=== PATIENT | male | born 1960 | race Caucasian/White ===

== ENCOUNTER 2023-02-12 17:44 | Outpatient (REF) | payer OTHER, SELFPAY | END 2023-02-12 17:45 | disposition home or self-care (01) | LOC: LAB 17:44 | PROVIDERS: PCP Internal Medicine; Visit Provider Surgery | DX: L72.3 Sebaceous cyst (principal) | CPT/HCPCS: 87070 ==

== ENCOUNTER 2023-03-03 10:34 | Day surgery (SDC) | payer OTHER, SELFPAY ==
--- NOTE | 2023-03-03 | OP_ITS ---
OPERATION DATE: ??03/03/2023 PREOPERATIVE DIAGNOSIS:? Previously infected epidermal cyst mid back. POSTOPERATIVE DIAGNOSIS:? Previously infected epidermal cyst mid back. PROCEDURE:? Excisional biopsy epidermal cyst mid back. SURGEON:? Rigoberto Mcdaniel M.D. ANESTHESIA:? Local with 1% lidocaine with epinephrine. ESTIMATED BLOOD LOSS:? Less than 5 mL. TOTAL LENGTH OF INCISION:? 2 cm. INDICATIONS AND CONSENT:? Patient is a 63-year-old male with a long history of epidermal cyst on the back that has been intermittently infected, including a recent episode.? He now presents for excisional biopsy for definitive diagnosis and treatment.? Indications, risks, benefits, alternatives of proceeding with excisional biopsy under local anesthesia were explained extensively to the patient, including risks of bleeding, infection, scarring, pain, recurrence, need for further surgery.? All of his questions were answered.? Informed consent was obtained. PROCEDURE:? Patient brought to the procedure room, placed in the left lateral decubitus position.? The area was prepped and draped in the usual sterile fashion.? It was anesthetized with 1% lidocaine with epinephrine.? It was excised elliptical fashion down to subcutaneous fat.? There was extensive scarring around it.? Hemostasis was achieved with needle tip electrocautery.? The specimen was sent off to Pathology.? The wound was irrigated.? The wound was then closed with 3-0 nylon mattress suture, as well as 4-0 nylon simple sutures.? An Adaptic with a small amount of antibiotic ointment and pressure dressing was then applied.? Patient tolerated procedure well, was sent back to the recovery area and discharged home in good condition. CC:? Dr. Hans CHAND
[2023-03-03 11:50] VITALS: BP 159/78; PULSE 72; RESP 16; O2SAT 97
[2023-03-03] MEDS: LIDOCAINE HCL 1%-EPINEPHRINE 1:100,000 20 ML MDV INJ (11:50)
[2023-03-03] MEDS: BACITRACIN OINTMENT 28.4 GM TUBE 1 APPLIC TOPICAL (12:08)
[2023-03-03 12:10] VITALS: BP 153/78; PULSE 63; RESP 98; O2SAT 98
== END 2023-03-03 12:22 | disposition home or self-care (01) ==
PROVIDERS: PCP Internal Medicine; Visit Provider Surgery
PROC: (CPT 11402; principal; 2023-03-03 11:40)
DX: L72.0 Epidermal cyst (principal); E11.9 Type 2 diabetes mellitus without complications; R97.20 Elevated prostate specific antigen [PSA]; I10 Essential (primary) hypertension; M10.9 Gout, unspecified; Z79.82 Long term (current) use of aspirin; Z79.84 Long term (current) use of oral hypoglycemic drugs; M54.89 Other dorsalgia; L08.89 Other specified local infections of the skin and subcutaneous tissue
CPT/HCPCS: 11402; 12031; 88304

== ENCOUNTER 2023-08-19 09:20 | Outpatient (OUT) | payer OTHER, SELFPAY ==
[2023-08-19 10:38] LABS: Estimated Average Glucose 203 mg/dL; Glycohemoglobin A1C 8.7 % (4.5-6.2)
[2023-08-19 10:45] LABS: Alanine Aminotransferase 50 U/L (16-63); Albumin Globulin Ratio 1.2; Albumin Level 3.7 g/dL (3.4-5.0); Alkaline Phosphatase 48 U/L (46-116); Anion Gap 8.9; Aspartate Amino Transferase 26 U/L (15-37); BUN Creatinine Ratio 14.4; Bilirubin Total 0.6 mg/dL (0.2-1.0); Calcium 9.2 mg/dL (8.5-10.1); Carbon Dioxide 33.6 mmol/L (21.0-32.0); Chloride 106 mmol/L (98-107); Chol HDL Ratio 3.8; Cholesterol 177 mg/dL (<=200); Estimated GFR (African America >60 (>=60); Estimated GFR (Non-African Ame >60 (>=60); Globulin 3.1 g/dL; Glucose 129 mg/dL (74-106); HDL Cholesterol 47 mg/dL (40-60); Potassium 4.5 mmol/L (3.5-5.1); Sodium 144 mmol/L (136-145); Total Protein 6.8 g/dL (6.4-8.2); Triglycerides 175 mg/dL (<=150)
[2023-08-19 11:06] LABS: Bilirubin Urine NEGATIVE (NEGATIVE); Blood Urine NEGATIVE (NEGATIVE); Clarity Urine CLEAR (CLEAR); Color Urine YELLOW (YELLOW); Glucose Urine UA >=1000 mg/dL (NEGATIVE); Ketones Urine NEGATIVE (NEGATIVE); Leukocyte Esterase Urine NEGATIVE (NEGATIVE); Nitrite Urine NEGATIVE (NEGATIVE); Protein Urine NEGATIVE (NEG/TRACE); Urobilinogen Urine 0.2 EU/dL (0.2-1.0); pH Urine 5.5 (5.0-9.0)
[2023-08-19 11:46] LABS: Basophils Absolute Auto 0.1 10^3/uL (0.0-0.1); Basophils Percent Auto 0.9 % (0.2-2.0); Eosinophils Absolute Auto 0.2 10^3/uL (0.0-0.7); Eosinophils Percent Auto 2.4 % (0.9-7.0); Hematocrit 41.2 % (42.0-54.0); Hemoglobin 13.6 g/dL (14.0-18.0); Immature Granulocytes Abs Auto 0.03 10^3/uL (0.00-0.03); Immature Granulocytes Pct Auto 0.4 % (0.0-0.5); Lymphocytes Absolute Auto 1.5 10^3/uL (1.2-3.8); Mean Corpuscular Hemoglobin 29.1 pg (25.9-34.0); Mean Corpuscular Volume 88.2 fL (80.0-94.0); Mean Platelet Volume 9.5 fL (9.5-13.5); Monocytes Absolute Auto 0.7 10^3/uL (0.3-0.8); Monocytes Percent Auto 9.6 % (1.7-12.0); Neutrophils Absolute Auto 4.5 10^3/uL (1.4-6.5); Neutrophils Percent Auto 64.7 % (43.0-75.0); Platelet Count 242 10^3/uL (150-450); Red Blood Count 4.67 10^6/uL (4.70-6.10); Red Cell Distribution Width 13.6 % (11.0-15.0)
[2023-08-19 12:05] LABS: Bacteria Urine NONE SEEN #/HPF (NONE SEEN); Cast Seen? NONE SEEN #/LPF (NONE SEEN); Crystals Seen? None Seen #/HPF (None Seen); Mucus Urine NONE SEEN (NONE SEEN); RBC Urine NONE SEEN #/HPF (0-2); Squamous Epithelial Cell Urine NONE SEEN #/LPF (NONE/RARE); WBC Urine NONE SEEN #/HPF (NONE SEEN)
== END 2023-08-19 09:21 | disposition home or self-care (01) ==
LOC: LAB 09:21
PROVIDERS: PCP Internal Medicine; Visit Provider Internal Medicine
DX: E11.9 Type 2 diabetes mellitus without complications (principal); I10 Essential (primary) hypertension
CPT/HCPCS: 36415; 80053; 80061; 81001; 83036; 85025